=== PATIENT | female | born 1960 | race Caucasian/White ===

== ENCOUNTER 2020-08-14 04:26 | Day surgery (SDC) | payer BC, OTHER ==
[2020-08-12 16:39] VITALS: BMI 25.7
[2020-08-14] MEDS ORDERED: BUPIVACAINE HCL/PF 0.25% (2.5MG/ML) 10 ML VIAL ONE (07:36)
[2020-08-14] MEDS ORDERED: LIDOCAINE HCL/PF 1% SDV 5ML VIAL ONE ×2 (07:36→14:11)
[2020-08-14] MEDS ORDERED: BUPIVACAINE HCL/PF 0.75% 10 ML VIAL ONE (10:12)
[2020-08-14] MEDS ORDERED: MIDAZOLAM HCL 2 MG/2 ML SINGLE DOSE VIAL ONE ×3 (13:51→16:01)
[2020-08-14] MEDS ORDERED: ceFAZolin SODIUM 1 GM VIAL ONE (13:59)
[2020-08-14] MEDS ORDERED: ceFAZolin 2 GRAM PREMIX BAG IVPB ONE (14:00)
[2020-08-14] MEDS ORDERED: LIDOCAINE HCL/PF 2% SDV 5ML VIAL ONE (14:19)
[2020-08-14] MEDS ORDERED: LIDOCAINE HCL 2% (50ML VIAL) SQ ONE ×3 (14:35→14:53)
[2020-08-14] MEDS ORDERED: LIDOCAINE HCL 1%, 10 MG/ML (20ML VIAL) SQ ONE (14:53)
[2020-08-14] MEDS ORDERED: ONDANSETRON 4 MG/2 ML VIAL ONE (15:28)
[2020-08-14] MEDS ORDERED: DEXAMETHASONE SOD PHOSPHATE 4 MG/1 ML VIAL ONE (15:28)
[2020-08-14] MEDS ORDERED: oxyCODONE HCL 5 MG TABLET PO PRN ×2 (15:46)
[2020-08-14] MEDS ORDERED: ONDANSETRON 4 MG/2 ML VIAL IVPUSH PRN (15:46)
[2020-08-14] MEDS ORDERED: LACTATED RINGERS SOLUTION 1,000 ML IV SCH (16:00)
[2020-08-14 17:58] VITALS: BP 122/70; PULSE 72; TEMP 97.8
== END 2020-08-14 18:30 | disposition home or self-care (01) ==
LOC: JASU-SURG 04:26
PROVIDERS: ATTEND Pain Medicine Pain Medicine
PROC: 00HU3MZ Insertion of Neurostimulator Lead into Spinal Canal, Percutaneous Approach (ICD-10-PCS; principal; 2020-08-14 12:30)
DX: G57.71 Causalgia of right lower limb (principal)
CPT/HCPCS: 63650; C1778; 76000-TC-FY

== ENCOUNTER 2022-02-22 04:34 | Day surgery (SDC) | payer BC, OTHER ==
[2022-02-15 14:05] VITALS: BMI 24.4
[2022-02-22] MEDS ORDERED: MIDAZOLAM HCL 2 MG/2 ML SINGLE DOSE VIAL ONE (07:28)
[2022-02-22] MEDS ORDERED: BUPIVACAINE HCL/PF 0.5% (5MG/ML) 10 ML VIAL ONE (07:31)
[2022-02-22] MEDS ORDERED: ceFAZolin SODIUM 1 GM VIAL IVPB ONE (08:34)
[2022-02-22] MEDS ORDERED: ACETAMINOPHEN INJECTION 100 ML IVPB ONE (08:45)
[2022-02-22] MEDS ORDERED: GLYCOPYRROLATE 0.2 MG/1 ML VIAL ONE ×2 (08:49→09:31)
[2022-02-22] MEDS ORDERED: NEOSTIGMINE METHYLSULFATE 0.5 MG/ML - 10 ML MDV ONE (08:49)
[2022-02-22] MEDS ORDERED: BUPIVACAINE HCL/PF 0.5% (5MG/ML) 10 ML VIAL IJ ONE (09:29)
[2022-02-22] MEDS ORDERED: ONDANSETRON 4 MG/2 ML VIAL IVPUSH PRN (09:53)
[2022-02-22] MEDS ORDERED: LACTATED RINGERS SOLUTION 1,000 ML IV SCH (10:00)
[2022-02-22] MEDS ORDERED: traMADol HCL 50 MG TABLET PO ONE ×2 (10:24→14:15)
[2022-02-22] MEDS ORDERED: KETOROLAC TROMETHAMINE 15 MG/ML VIAL IVPUSH ONE (10:24)
[2022-02-22] MEDS ORDERED: KETOROLAC TROMETHAMINE 30 MG/1 ML VIAL ONE (10:29)
[2022-02-22] MEDS ORDERED: ONDANSETRON 4 MG/2 ML VIAL ONE (11:49)
[2022-02-22 12:16] VITALS: RESP 16
[2022-02-22] MEDS ORDERED: ONDANSETRON *ODT* 4 MG TABLET ONE (12:17)
[2022-02-22] MEDS ORDERED: ONDANSETRON *ODT* 4 MG TABLET SL ONE (12:20)
[2022-02-22] MEDS ORDERED: traMADol HCL 50 MG TABLET ONE (14:17)
[2022-02-22 16:07] VITALS: BP 105/69; PULSE 68; TEMP 98.9
== END 2022-02-22 16:00 | disposition home or self-care (01) ==
LOC: JASU-SURG 04:34
PROVIDERS: ATTEND Surgery
PROC: 0WUF0JZ Supplement Abdominal Wall with Synthetic Substitute, Open Approach (ICD-10-PCS; principal; 2022-02-22 08:00)
DX: K43.9 Ventral hernia without obstruction or gangrene (principal)
CPT/HCPCS: 86850; 86900; 86901; 88302-TC; 94760; Q0162